=== PATIENT | male | born 1990 | race Caucasian/White ===

== ENCOUNTER 2018-01-02 20:16 | Emergency (ER) | payer SELFPAY ==
[2018-01-03] MEDS ORDERED: NORCO 7.5/325 PO ONE (00:52)
[2018-01-03 01:15] LABS: Hematocrit 39.4 % (35.5-45.6); Hemoglobin 13.9 gm/dl (11.8-15.2); Mean Corpuscular HGB Conc 35 % (32-34); Mean Corpuscular Hemoglobin 32 pg (28-32); Mean Corpuscular Volume 92 fl (84-94); Platelet Count 168 K/mm3 (140-440); Red Blood Count 4.28 M/mm3 (3.65-5.03); Red Cell Distribution Width 13.1 % (13.2-15.2)
[2018-01-03 01:26] LABS: Alanine Aminotransferase 28 units/L (7-56); Albumin 3.8 g/dL (3.9-5); BUN/Creatinine Ratio 12; Blood Urea Nitrogen 11 mg/dL (9-20); Calcium 8.8 mg/dL (8.4-10.2); Hemolysis Index 18
--- NOTE | 2018-01-03 01:41 | Emergency Department Report ---
ED General Adult HPI - General Chief complaint: Dental/Oral Stated complaint: RT FACIAL PAIN/SWELLING Time Seen by Provider: 01/03/18 00:37 Source: patient, family Mode of arrival: Ambulatory Limitations: Language Barrier - History of Present Illness Initial comments: 27-year-old male with the current history of HIV positive that comes to the emergency room with a prescription from his primary provider Dr. Abdon Purdy for concerns of swelling to the right mastoid area. Patient reports that he has had swelling for a year which has now become bolus and painful. Patient is currently taking an antiviral medication as well as Bactrim. Patient's last CD4 count was 191. Patient reports that it is painful 9 out of 10. It is noted the patient has a low-grade fever of 99.6. Location: head Severity scale (0 -10): 9 Quality: aching, sharp Consistency: constant Improves with: none Worsens with: none Treatments Prior to Arrival: none - Related Data Previous Rx's Medication Instructions Recorded Last Taken Type Clindamycin [Clindamycin CAP] 300 mg PO Q8H 7 Days #21 cap 01/03/18 Unknown Rx Ibuprofen [Motrin 600 MG tab] 600 mg PO Q8H PRN #30 tablet 01/03/18 Unknown Rx Allergies Allergy/AdvReac Type Severity Reaction Status Date / Time No Known Allergies Allergy Unverified 01/02/18 20:31 ED Review of Systems ROS: Stated complaint: RT FACIAL PAIN/SWELLING Other details as noted in HPI Constitutional: fever (low-grade pain) ENT: other ( behind the right ear) Respiratory: denies: cough, shortness of breath, wheezing Cardiovascular: denies: chest pain, palpitations ED Past Medical Hx - Past Medical History Previous Medical History?: No Hx HIV: Yes - Surgical History Past Surgical History?: Yes Hx Appendectomy: Yes - Social History Smoking Status: Never Smoker Substance Use Type: None - Medications Home Medications: Home Medications Medication Instructions Recorded Confirmed Last Taken Type Clindamycin [Clindamycin CAP] 300 mg PO Q8H 7 Days #21 cap 01/03/18 Unknown Rx Ibuprofen [Motrin 600 MG tab] 600 mg PO Q8H PRN #30 tablet 01/03/18 Unknown Rx ED Physical Exam - General Limitations: Language Barrier General appearance: alert, in no apparent distress - Head Head exam: Present: atraumatic, normocephalic - Eye Eye exam: Present: EOMI - ENT ENT exam: Present: other (firm large mass located at the mastoid of the right ear. Tender to palpate erythematous nonfluctuant firm) - Neck Neck exam: Present: full ROM. Absent: tenderness - Respiratory Respiratory exam: Present: normal lung sounds bilaterally. Absent: respiratory distress - Cardiovascular Cardiovascular Exam: Present: regular rate, normal rhythm. Absent: systolic murmur, diastolic murmur, rubs, gallop ED Course Vital Signs 01/02/18 01/03/18 01/03/18 20:24 01:07 04:10 Temperature 99.6 F Pulse Rate 99 H 64 Respiratory 18 18 18 Rate Blood Pressure 127/77 Blood Pressure 102/65 [Right] O2 Sat by Pulse 99 98 Oximetry ED Medical Decision Making - Lab Data Result diagrams: 01/03/18 00:55 01/03/18 00:55 - Medical Decision Making She has been evaluated by this provider fast track. Patient has been given Steinauer for pain management. CBC CMP and CT with contrast has been ordered. Spoke to he came over to evaluate patient as well. Critical care attestation.: If time is entered above; I have spent that time in minutes in the direct care of this critically ill patient, excluding procedure time. ED Disposition Clinical Impression: Enlarged parotid gland Disposition: DC- TO HOME OR SELFCARE Is pt being admited?: No Does the pt Need Aspirin: No Condition: Stable Instructions: Parotid Duct Obstruction (ED), Sialoadenitis (ED) Additional Instructions: Please call Central scheduling at [phone] to make an appt with [facility] otolaryngologists/ear nose and throat doctor. Complete antibiotics as prescribed. Pain medication as needed. Continue following your primary care doctor. Prescriptions: Clindamycin [Clindamycin CAP] 300 mg PO Q8H 7 Days #21 cap Ibuprofen [Motrin 600 MG tab] 600 mg PO Q8H PRN #30 tablet PRN Reason: Pain Referrals: PRIMARY MD KENN [Primary Care Provider] - 3-5 Days [facility] [Outside] - 3-5 Days ABDON ROSALES MD [Referring] - 3-5 Days Forms: Accompanied Note, Work/School Release Form(ED)
[2018-01-03 03:11] LABS: Anisocytosis 1+; Band Neutrophils # (Manual) 0.1 K/mm3; Basophils % (Manual) 0 % (0.0-1.8); Total Cells Counted 100
--- NOTE | 2018-01-03 03:40 | Cat Scan Report ---
FINAL REPORT EXAM: CT ORBIT/EAR/FOSSA W CON HISTORY: Mass at the right mastoid. TECHNIQUE: Uneventful IV administration of iodinated contrast material with justifiable medical necessity in my professional opinion. Post-contrast volumetric CT through the posterior fossa and upper neck soft tissues. MPR. Overall image quality is satisfactory. PRIORS: None. FINDINGS: Upper part of the airway: Patent. Oral cavity, oropharynx, hypopharynx and pharynx: Intact Thyroid: Homogenous. Parotid glands: There is marked enlargement and heterogeneity of the right parotid gland with additional posterior central 1.1 x 1.2 x 0.9 cm region of fluid attenuation which may represent intra parotid duct dilatation or small intra parotid abscess. There is additional thickening of the overlying soft tissue skin. At the superior posterior margin of the parotid gland is an additional soft tissue mass measuring 4.2 x 2.1 cm (axial image 65) which extends to the skin surface through the subcutaneous fat with effacement. The mastoid air cells are clear bilaterally. Significant adenopathy: Multifocal enlarged right cervical lymph nodes. Major vessels: Intact Included central skull base, paranasal sinuses and orbits: Maxillary sinus mucosal thickening and multiple probable mucous retention cyst versus polyps. Cervical spine: Intact IMPRESSION: Enlargement of the right parotid gland with 1.1 x 1.2 x 0.9 cm intraparotid fluid collection which may represent dilated duct or abscess. There is an additional soft tissue attenuation mass, similar attenuation to the parotid gland which extends to the skin surface in the region of the right mastoid air cells. Differential includes markedly inflammatory parotid tissue/phlegmon vs neoplasm given the infiltrative appearance of the fat. Marked right cervical adenopathy, reactive or neoplastic. Recommend ENT consultation and correlation with clinical exam. Mastoid air cells clear.
[2018-01-03 04:10] VITALS: BP 102/65
== END 2018-01-03 05:00 | disposition home or self-care (01) ==
LOC: ED 20:16
DX: K11.9 Disease of salivary gland, unspecified (principal); Z21 Asymptomatic human immunodeficiency virus [HIV] infection status; Z90.49 Acquired absence of other specified parts of digestive tract
CPT/HCPCS: 36415; 70481; 80053; 85007; 85025; 99284; Q9967